=== PATIENT | male | born 1980 | race Caucasian/White ===

== ENCOUNTER 2022-09-09 07:57 | Outpatient (CLI) | payer BC, SELFPAY | END 2022-09-09 07:58 | disposition home or self-care (01) | LOC: LONREF 07:58 | PROVIDERS: PCP Family Medicine; Visit Provider Family Medicine | DX: E78.5 Hyperlipidemia, unspecified (principal) | CPT/HCPCS: 80061 ==

== ENCOUNTER 2024-02-04 09:42 | Outpatient (CLI) | payer BC, SELFPAY | END 2024-02-04 09:43 | disposition home or self-care (01) | PROVIDERS: PCP Family Medicine; Visit Provider Family Medicine | DX: E78.5 Hyperlipidemia, unspecified (principal); Z13.0 Encounter for screening for diseases of the blood and blood-forming organs and certain disorders involving the immune mechanism; Z13.1 Encounter for screening for diabetes mellitus | CPT/HCPCS: 80048; 80061 ==